=== PATIENT | male | born 1955 | race Two or more races ===

== ENCOUNTER 2019-07-13 18:54 | Emergency (ER) | payer OTHER ==
[~2019-07-13] VITALS: Ht 185.4 cm; Wt 106.6 kg
[2019-07-13 19:27] VITALS: BP 155/80
[2019-07-13] MEDS ORDERED: LIDOCAINE W/ EPINEPHRINE 2% INJ 20ML VIAL ONE (20:41)
[2019-07-13] MEDS ORDERED: LIDOCAINE W/ EPINEPHRINE 2% INJ 20ML VIAL IJ ONE (20:45)
== END 2019-07-13 21:12 | disposition home or self-care (01) ==
LOC: ER 18:58
DX: T16.2XXA Foreign body in left ear, initial encounter (principal); B35.1 Tinea unguium; L60.2 Onychogryphosis; X58.XXXA Exposure to other specified factors, initial encounter; Y93.89 Activity, other specified; Y92.89 Other specified places as the place of occurrence of the external cause; Y99.8 Other external cause status

== ENCOUNTER 2023-05-19 16:24 | Emergency (ER) | payer MEDICARE, OTHER ==
[~2023-05-19] VITALS: Ht 182.9 cm; Wt 88.4 kg
[2023-05-19 16:40] VITALS: BP 162/85
[2023-05-19] MEDS ORDERED: ZOFR4T PO (18:57)
[2023-05-19] MEDS ORDERED: HYDR-4902 PO (18:57)
[2023-05-19] MEDS ORDERED: HYDROcodone-ACET 5/325MG TAB PO ONE (19:00)
[2023-05-19] MEDS ORDERED: ONDANSETRON ODT 4 MG TAB PO ONE (19:00)
== END 2023-05-19 19:11 | disposition home or self-care (01) ==
LOC: ER 16:24
DX: R51.9 Headache, unspecified (principal); R42 Dizziness and giddiness; F12.10 Cannabis abuse, uncomplicated; E11.9 Type 2 diabetes mellitus without complications; I10 Essential (primary) hypertension
CPT/HCPCS: 70450; 99284; Q0162

== ENCOUNTER 2023-10-19 16:24 | Emergency (ER) | payer SELFPAY ==
[~2023-10-19] VITALS: Ht 182.9 cm; Wt 50.0 kg
[~2023-10-19 16:24] MED LIST: HYDR-4902 PO; ZOFR4T PO
[2023-10-19 16:42] VITALS: BP 164/97; PULSE 91; RESP 20; O2SAT 94
== END 2023-10-19 21:56 | disposition left against medical advice (07) ==
LOC: EDBD 16:24 → EDSEX 16:24 → ER 16:24
DX: S01.81XA Laceration without foreign body of other part of head, initial encounter (principal); Z53.21 Procedure and treatment not carried out due to patient leaving prior to being seen by health care provider; W18.39XA Other fall on same level, initial encounter; Y93.89 Activity, other specified; Y92.89 Other specified places as the place of occurrence of the external cause; Y99.8 Other external cause status

== ENCOUNTER 2024-06-23 16:41 | Inpatient (IN) | payer MEDICARE, MEDICAID ==
[~2024-06-23] VITALS: Ht 185.4 cm; Wt 92.8 kg
[2024-06-23 17:30] LABS: Basophils # (auto) 0 10 ^3/uL (0-0.2); Basophils % (auto) 0.3 % (0.0-2.0); Eosinophils # (auto) 0.1 10 ^3/uL (0-0.8); Eosinophils % (auto) 0.8 % (0.0-7.0); Hematocrit 39.8 % (41.0-53.0); Hemoglobin 13.3 g/dL (13.5-17.5); Lymphocytes # (auto) 1.9 10 ^3/uL (0.4-5.4); Lymphocytes % (auto) 15.9 % (10.0-50.0); Mean Corpuscular Hemoglobin 29.8 pg (28.0-32.0); Mean Corpuscular Hgb Conc. 33.4 g/dL (32.0-36.0); Mean Corpuscular Volume 89.3 fL (80.0-100.0); Monocytes # (auto) 0.9 10 ^3/uL (0-1.3); Monocytes % (auto) 7.4 % (0.0-12.0); Neutrophils # (auto) 8.9 10 ^3/uL (1.6-8.6); Neutrophils % (auto) 75.6 % (37.0-80.0); Platelet Count (auto) 331 10^3/uL (140-450); Red Blood Cells 4.46 10^6/uL (4.5-5.90); Red Cell Distribution Width 13.1 % (11.8-14.3); White Blood Cell 11.8 10^3/uL (4.4-10.8)
[2024-06-23 17:45] LABS: Alanine Aminotransferase 21 U/L (7-40); Albumin 4.4 g/dL (3.2-4.8); Alkaline Phosphatase 85 U/L (46-116); Anion Gap 12 (5-15); Aspartate Aminotransferase < 8 U/L (13-40); BUN/Creatinine Ratio 13.9 (10.0-20.0); Bilirubin, Total 0.5 mg/dL (0.2-1.0); Blood Urea Nitrogen 21 mg/dL (9-23); Calcium 10.1 mg/dL (8.7-10.4); Carbon Dioxide 21 mmol/L (20-30); Chloride 108 mmol/L (98-107); Glucose 134 mg/dL (74-106); Lipase 31 U/L (12-53); Potassium 3.8 mmol/L (3.5-5.1); Sodium 141 mmol/L (136-145); Total Protein 7.8 g/dL (5.7-8.2)
[2024-06-23 18:04] LABS: Blood Alcohol < 3.0 mg/dL (<10)
[2024-06-23 19:30] VITALS: PULSE 79; RESP 17; O2SAT 99
[2024-06-23] MEDS ORDERED: HYDROcodone-ACET 5/325MG TAB PO PRN (22:00)
[2024-06-23] MEDS ORDERED: ONDANSETRON HCL 4 MG/2 ML VIAL IV PRN (22:00)
[2024-06-23] MEDS ORDERED: ACETAMINOPHEN 325 MG TAB PO PRN (22:00)
[2024-06-23] MEDS: SODIUM CHLOR 0.9% PF (SALINE LOCK) 10ML VIAL/SYR IV SCH (22:22)
[2024-06-24] VITALS (13 sets, daily range): BP systolic 112–134; BP diastolic 63–74; PULSE 59–76; RESP 17–18; TEMP 97–98.5; O2SAT 95–99
[2024-06-24 13:01] LABS: Basophils # (auto) 0.1 10 ^3/uL (0-0.2); Basophils % (auto) 0.7 % (0.0-2.0); Eosinophils # (auto) 0.2 10 ^3/uL (0-0.8); Eosinophils % (auto) 2.3 % (0.0-7.0); Hematocrit 42.6 % (41.0-53.0); Hemoglobin 14.5 g/dL (13.5-17.5); Lymphocytes # (auto) 1.4 10 ^3/uL (0.4-5.4); Lymphocytes % (auto) 15.1 % (10.0-50.0); Mean Corpuscular Hemoglobin 30.4 pg (28.0-32.0); Mean Corpuscular Volume 89.2 fL (80.0-100.0); Monocytes # (auto) 0.5 10 ^3/uL (0-1.3); Monocytes % (auto) 5.3 % (0.0-12.0); Neutrophils # (auto) 7.1 10 ^3/uL (1.6-8.6); Neutrophils % (auto) 76.6 % (37.0-80.0); Nucleated Red Blood Cells % 0.1 %; Platelet Count (auto) 340 10^3/uL (140-450); Red Blood Cells 4.78 10^6/uL (4.5-5.90); Red Cell Distribution Width 13.2 % (11.8-14.3); White Blood Cell 9.3 10^3/uL (4.4-10.8)
[2024-06-24 13:19] LABS: Anion Gap 8 (5-15); Carbon Dioxide 26 mmol/L (20-30); Chloride 107 mmol/L (98-107); Potassium 3.9 mmol/L (3.5-5.1); Sodium 141 mmol/L (136-145)
[2024-06-24 13:20] LABS: Calcium 9.8 mg/dL (8.7-10.4)
[2024-06-24 13:25] LABS: BUN/Creatinine Ratio 16.9 (10.0-20.0); Blood Urea Nitrogen 22 mg/dL (9-23); Glucose 141 mg/dL (74-106)
[2024-06-24 14:00] LABS: Magnesium 1.9 mg/dL (1.6-2.6)
[2024-06-24] MEDS ORDERED: DEXTROSE (50%) 50ML SYRG IV PRN (14:00)
[2024-06-24] MEDS ORDERED: SODIUM CHLORIDE 0.9% 1,000 ML IV SCH (14:00)
[2024-06-24 14:01] LABS: Phosphorus 3.7 mg/dL (2.4-5.1)
[2024-06-24] MEDS: ACCU-CHEK COMFORT CURVE STRIP VI SCH (17:49)
[2024-06-24] MEDS: InsuLIN REG 1unit/0.01ml Soln (100units/ml) SC SCH (17:49)
[2024-06-24] MEDS: CHOLECALCIFEROL (VITD3) 1,000UNIT=25mCg TAB PO ONE (18:17)
[2024-06-24] MEDS: PANTOPRAZOLE 40 MG TAB PO ONE (18:17)
[2024-06-24 21:00] LABS: Urine Bacteria None Seen /hpf (None Seen)
[2024-06-24 21:20] LABS: Sodium Urine 67 mmol/L (40-220)
[2024-06-24 21:26] LABS: Protein, Urine 13.4 mg/dL (0.0-11.9)
[2024-06-24 21:27] LABS: Amphetamine Screen, Urine Neg (NEGATIVE); Benzodiazephine Screen, Urine Neg (NEGATIVE)
[2024-06-24 21:28] LABS: Barbiturate Scree,Urine Neg (NEGATIVE); Cocaine Screen, Urine Neg (NEGATIVE); Creatinine, Urine 177.16 mg/dL (30.0-125.0); Opiate Scree,Urine Neg (NEGATIVE); Phencyclidine Screen, Urine Neg (NEGATIVE); Urine Blood 2+ /uL (Negative); Urine Clarity Turbid (Clear); Urine Color Light-Yellow (Yellow); Urine Protein, UAD Negative (Negative); Urine Specific Gravity 1.024 (1.001-1.035); Urine Urobilinogen Normal (Negative); Urine WBC 5 /hpf (0 - 3); Urine pH 5.5 (5.0-9.0)
[2024-06-24 21:29] LABS: Cannabinoid Screen, Urine Neg (NEGATIVE)
[2024-06-25] VITALS (12 sets, daily range): BP systolic 110–138; BP diastolic 62–83; PULSE 57–76; RESP 14–20; TEMP 97.8–98.7; O2SAT 90–99
[2024-06-25] MEDS: PANTOPRAZOLE 40 MG TAB PO SCH (06:00)
[2024-06-25 06:47] LABS: Anion Gap 11 (5-15); Carbon Dioxide 22 mmol/L (20-30); Chloride 108 mmol/L (98-107); Potassium 3.8 mmol/L (3.5-5.1); Sodium 141 mmol/L (136-145)
[2024-06-25 06:54] LABS: BUN/Creatinine Ratio 14.3 (10.0-20.0); Blood Urea Nitrogen 17 mg/dL (9-23); Glucose 115 mg/dL (74-106)
[2024-06-25] MEDS: ALBUTEROL SULF 2.5 MG/0.5ML(0.5%) NEB SOLN ONE (08:33)
[2024-06-25] MEDS: ENOXAPARIN SOD 40 MG/0.4 ML SYRINGE SC SCH (10:06)
[2024-06-25] MEDS: CHOLECALCIFEROL (VITD3) 1,000UNIT=25mCg TAB PO SCH (10:06)
[2024-06-26] VITALS (7 sets, daily range): BP systolic 129–144; BP diastolic 72–98; PULSE 60–70; RESP 16–18; TEMP 98–98.4; O2SAT 95–97
[2024-06-26] MEDS: DOCUSATE SOD 100 MG CAP PO PRN (10:53)
[2024-06-26] MEDS ORDERED: LORazepam 2MG/ML-1ML VIAL IV PRN (23:00)
[2024-06-27] VITALS (9 sets, daily range): BP systolic 114–133; BP diastolic 58–84; PULSE 63–83; RESP 16–19; TEMP 97.7–98.1; O2SAT 94–98
[2024-06-28] VITALS (8 sets, daily range): BP systolic 119–133; BP diastolic 72–78; PULSE 56–70; RESP 16–18; TEMP 97.6–98.3; O2SAT 94–98
[2024-06-29 01:00] VITALS: BP 126/76; PULSE 58; RESP 18; TEMP 97.7; O2SAT 94
[2024-06-29 05:00] VITALS: BP 134/71; PULSE 61; RESP 20; TEMP 97.6; O2SAT 96
[2024-06-29 07:15] LABS: Anion Gap 5 (5-15); Carbon Dioxide 26 mmol/L (20-30); Chloride 108 mmol/L (98-107); Sodium 139 mmol/L (136-145)
[2024-06-29 07:21] LABS: BUN/Creatinine Ratio 11.5 (10.0-20.0); Blood Urea Nitrogen 15 mg/dL (9-23); Glucose 115 mg/dL (74-106)
[2024-06-29 08:00] VITALS: PULSE 59; PULSE 65; RESP 20
[2024-06-29 09:00] VITALS: BP 112/61; PULSE 65; RESP 20; TEMP 98.2; O2SAT 96
== END 2024-06-29 16:09 | disposition home or self-care (01) | DRG 91 ==
LOC: ER 16:41 → EDBD 16:41 → EDUNIT# 16:41 → TELE 21:56 → TELE-EAST 23:04 → TELE-CENTR 06-24 11:37 → CENTRAL 06-29 10:44
PROVIDERS: ADMIT Internal Medicine Geriatric Medicine; ATTEND Internal Medicine Geriatric Medicine
DX: G92.8 Other toxic encephalopathy (principal); N17.0 Acute kidney failure with tubular necrosis; I49.8 Other specified cardiac arrhythmias; E11.9 Type 2 diabetes mellitus without complications; F12.10 Cannabis abuse, uncomplicated; I10 Essential (primary) hypertension; E55.9 Vitamin D deficiency, unspecified; Z86.73 Personal history of transient ischemic attack (TIA), and cerebral infarction without residual deficits; Z83.3 Family history of diabetes mellitus; Z82.0 Family history of epilepsy and other diseases of the nervous system; Z98.2 Presence of cerebrospinal fluid drainage device; F09 Unspecified mental disorder due to known physiological condition
CPT/HCPCS: 36415; 70450; 71045; 76775; 80048; 80053; 80307; 80320; 81001; 82043; 82140; 82306; 82550; 82570; 82607; 82746; 82962; 83036; 83605; 83690; 83735; 83880; 83930; 83935; 84100; 84156; 84300; 84443; 84484; 85025; 93005; 93306; 93886; 95819; 97110; 97116; 97163; 97530; G0378; J1815

== ENCOUNTER 2024-07-02 16:38 | Inpatient (IN) | payer MEDICARE, MEDICAID ==
[~2024-07-02] VITALS: Ht 182.9 cm; Wt 93.1 kg
[2024-07-02 17:42] LABS: Chloride 108 mmol/L (98-107); Potassium 3.6 mmol/L (3.5-5.1); Sodium 140 mmol/L (136-145)
[2024-07-02 17:43] LABS: Anion Gap 10 (5-15); Carbon Dioxide 22 mmol/L (20-30)
[2024-07-02 17:44] LABS: Calcium 9.9 mg/dL (8.7-10.4)
[2024-07-02 17:48] LABS: BUN/Creatinine Ratio 10.4 (10.0-20.0); Blood Urea Nitrogen 15 mg/dL (9-23); Glucose 133 mg/dL (74-106)
[2024-07-02 18:10] LABS: Basophils # (auto) 0 10 ^3/uL (0-0.2); Basophils % (auto) 0.6 % (0.0-2.0); Eosinophils # (auto) 0.1 10 ^3/uL (0-0.8); Hematocrit 39.2 % (41.0-53.0); Hemoglobin 13.6 g/dL (13.5-17.5); Lymphocytes # (auto) 1.4 10 ^3/uL (0.4-5.4); Lymphocytes % (auto) 16.5 % (10.0-50.0); Mean Corpuscular Hemoglobin 30.5 pg (28.0-32.0); Mean Corpuscular Hgb Conc. 34.7 g/dL (32.0-36.0); Mean Corpuscular Volume 87.7 fL (80.0-100.0); Monocytes # (auto) 0.6 10 ^3/uL (0-1.3); Monocytes % (auto) 7.4 % (0.0-12.0); Neutrophils # (auto) 6.3 10 ^3/uL (1.6-8.6); Neutrophils % (auto) 74.5 % (37.0-80.0); Nucleated Red Blood Cells % 0.1 %; Platelet Count (auto) 299 10^3/uL (140-450); Red Blood Cells 4.47 10^6/uL (4.5-5.90); Red Cell Distribution Width 13.4 % (11.8-14.3); White Blood Cell 8.4 10^3/uL (4.4-10.8)
[2024-07-02] MEDS ORDERED: DOCUSATE SOD 100 MG CAP PO PRN (19:30)
[2024-07-02] MEDS ORDERED: ACETAMINOPHEN 325 MG TAB PO PRN (19:30)
[2024-07-02] MEDS ORDERED: DEXTROSE (50%) 50ML SYRG IV PRN (19:30)
[2024-07-02] MEDS ORDERED: HYDROcodone-ACET 5/325MG TAB PO PRN (19:30)
[2024-07-02] MEDS ORDERED: ONDANSETRON HCL 4 MG/2 ML VIAL IV PRN (19:30)
[2024-07-02] MEDS ORDERED: MORPHINE SULFATE INJ 2 MG/ml SYRG IV PRN (19:45)
[2024-07-02] MEDS ORDERED: NITROGLYCERIN 0.4 MG SL TAB SL PRN (19:45)
[2024-07-02 20:12] LABS: COVID19 ANTIGEN SOFIA FIA NEGATIVE (NEGATIVE)
[2024-07-02] MEDS: InsuLIN REG 1unit/0.01ml Soln (100units/ml) SC SCH (22:00)
[2024-07-02] MEDS: ACCU-CHEK COMFORT CURVE STRIP VI SCH (22:18)
[2024-07-02] MEDS: SODIUM CHLOR 0.9% PF (SALINE LOCK) 10ML VIAL/SYR IV SCH (22:18)
[2024-07-03] VITALS (9 sets, daily range): BP systolic 113–144; BP diastolic 58–91; PULSE 57–83; RESP 15–21; TEMP 97.7–98; O2SAT 91–98
[2024-07-03 08:33] LABS: Basophils # (auto) 0.1 10 ^3/uL (0-0.2); Eosinophils # (auto) 0.3 10 ^3/uL (0-0.8); Eosinophils % (auto) 3.3 % (0.0-7.0); Hematocrit 44.3 % (41.0-53.0); Hemoglobin 15.1 g/dL (13.5-17.5); Lymphocytes # (auto) 2.7 10 ^3/uL (0.4-5.4); Lymphocytes % (auto) 32.8 % (10.0-50.0); Mean Corpuscular Hemoglobin 30.3 pg (28.0-32.0); Mean Corpuscular Hgb Conc. 34.2 g/dL (32.0-36.0); Mean Corpuscular Volume 88.6 fL (80.0-100.0); Monocytes # (auto) 0.9 10 ^3/uL (0-1.3); Monocytes % (auto) 10.4 % (0.0-12.0); Neutrophils # (auto) 4.3 10 ^3/uL (1.6-8.6); Neutrophils % (auto) 52.5 % (37.0-80.0); Nucleated Red Blood Cells % 0.1 %; Platelet Count (auto) 256 10^3/uL (140-450); Red Cell Distribution Width 13.3 % (11.8-14.3); White Blood Cell 8.3 10^3/uL (4.4-10.8)
[2024-07-03 08:38] LABS: Alanine Aminotransferase 21 U/L (7-40); Albumin 4.3 g/dL (3.2-4.8); Alkaline Phosphatase 91 U/L (46-116); Anion Gap 7 (5-15); Aspartate Aminotransferase 31 U/L (13-40); BUN/Creatinine Ratio 11.3 (10.0-20.0); Bilirubin, Total 0.5 mg/dL (0.2-1.0); Blood Urea Nitrogen 15 mg/dL (9-23); Carbon Dioxide 26 mmol/L (20-30); Chloride 109 mmol/L (98-107); Glucose 107 mg/dL (74-106); Potassium 4.1 mmol/L (3.5-5.1); Sodium 142 mmol/L (136-145); Total Protein 7.2 g/dL (5.7-8.2)
[2024-07-03] MEDS: ASPirin 81 mg TAB PO SCH (09:39)
[2024-07-04] VITALS (8 sets, daily range): BP systolic 115–133; BP diastolic 59–81; PULSE 54–69; RESP 17–69; TEMP 97.6–98.2; O2SAT 20–98
[2024-07-04 10:55] LABS: LDL Cholesterol 88 mg/dL (< 100); Triglycerides 151 mg/dL (< 150)
[2024-07-04 10:57] LABS: Cholesterol 154 mg/dL (< 200); HDL Cholesterol 37 mg/dL (40-59)
[2024-07-05] VITALS (8 sets, daily range): BP systolic 112–139; BP diastolic 66–88; PULSE 61–82; RESP 18–22; TEMP 97.5–98.8; O2SAT 95–97
[2024-07-06] VITALS (9 sets, daily range): BP systolic 114–137; BP diastolic 61–87; PULSE 58–70; RESP 16–20; TEMP 97.5–98.5; O2SAT 93–99
[2024-07-07 01:00] VITALS: BP 129/78; PULSE 67; RESP 20; TEMP 98; O2SAT 96
[2024-07-07 05:00] VITALS: BP 134/76; PULSE 67; RESP 20; TEMP 98.7; O2SAT 96
[2024-07-07 08:00] VITALS: PULSE 60
[2024-07-07 09:00] VITALS: BP 129/91; PULSE 67; RESP 20; TEMP 98.4; O2SAT 95
[2024-07-07 13:01] VITALS: BP 120/77; PULSE 69; RESP 18; TEMP 98; O2SAT 98
[2024-07-07 14:38] VITALS: TEMP 36.7
== END 2024-07-07 15:38 | disposition home or self-care (01) | DRG 310 ==
LOC: ER 16:38 → EDBD 16:38 → TELE 19:45 → TELE-WESTW 07-03 09:04
PROVIDERS: ADMIT Nurse Practitioner Family; ATTEND Family Medicine
DX: I49.8 Other specified cardiac arrhythmias (principal); G90.9 Disorder of the autonomic nervous system, unspecified; E11.65 Type 2 diabetes mellitus with hyperglycemia; F03.90 Unspecified dementia, unspecified severity, without behavioral disturbance, psychotic disturbance, mood disturbance, and anxiety; I10 Essential (primary) hypertension; Z20.822 Contact with and (suspected) exposure to COVID-19; F19.10 Other psychoactive substance abuse, uncomplicated; F12.20 Cannabis dependence, uncomplicated; Z98.2 Presence of cerebrospinal fluid drainage device; Z87.820 Personal history of traumatic brain injury; Z82.0 Family history of epilepsy and other diseases of the nervous system; Z83.3 Family history of diabetes mellitus; Z79.82 Long term (current) use of aspirin
CPT/HCPCS: 36415; 70450; 80048; 80053; 80061; 82962; 85025; 87081; 87426; 93005; 93886; 97110; 97116; 97163; 97530; G0378; J1815